=== PATIENT | female | born 1940 | race African-American/Black ===

== ENCOUNTER 2021-05-17 09:23 | Emergency (ER) | payer MEDICARE, OTHER ==
[~2021-05-17] VITALS: Ht 167.6 cm; Wt 104.3 kg
[2021-05-17 09:39] VITALS: BP 151/75
== END 2021-05-17 10:20 | disposition home or self-care (01) ==
LOC: ER 09:23
DX: I10 Essential (primary) hypertension (principal); E11.9 Type 2 diabetes mellitus without complications; F03.90 Unspecified dementia, unspecified severity, without behavioral disturbance, psychotic disturbance, mood disturbance, and anxiety; Z76.0 Encounter for issue of repeat prescription